=== PATIENT | male | born 1985 | race Caucasian/White ===

== ENCOUNTER 2017-11-11 16:28 | Emergency (ER) | payer SELFPAY ==
--- NOTE | 2017-11-11 16:36 | PDOC ---
History of Present Illness - History of Present Illness Initial Comments: 11/11/17 16:50 The patient is a 32 year old male, with a significant past medical history of asthma, who presents to the emergency department with possible oral thrush. Patient states that 4 days ago he noticed white patches on his tongue. He used peroxide with mild relief. He states yesterday his pain returned and he experienced a burning sensation in his mouth. He states he took amoxicillin this morning. Patient states he recently returned from a trip to [place] in which he was using his inhaler for his asthma more frequently. Patient states he has never had these white oral patches before. He admits to associated ear pain, nasal congestion, and cough. He denies any recent fevers, chills, headache or dizziness. He denies any recent nausea, vomit, diarrhea or constipation. He denies any recent chest pain or shortness of breath. Allergies: NKA Past surgical history: None reported. Social History: Nonsmoker. Denies EtOH use and recreational drug use. <Carmina Barroso - Last Filed: 11/11/17 16:54> <Omar Degroot - Last Filed: 11/11/17 17:11> - General Chief Complaint: Pain Stated Complaint: WHITE PATCHES ORAL, TONGUE Time Seen by Provider: 11/11/17 16:34 Past History <Carmina Barroso - Last Filed: 11/11/17 16:54> - Past Medical History Asthma: Yes Diabetes: No HTN: No - Immunization History Immunization Up to Date: Yes - Suicide/Smoking/Psychosocial Hx Smoking Status: No Smoking History: Unknown if ever smoked Have you smoked in the past 12 months: No Number of Cigarettes Smoked Daily: 0 Hx Alcohol Use: No Drug/Substance Use Hx: No Substance Use Type: None <Omar Degroot - Last Filed: 11/11/17 17:11> - Past Medical History Allergies/Adverse Reactions: Allergies Allergy/AdvReac Type Severity Reaction Status Date / Time No Known Allergies Allergy Verified 11/11/17 16:30 Home Medications: Ambulatory Orders Albuterol Sulfate Inhaler - [Ventolin HFA Inhaler -] 1 - 2 inh PO QID PRN Albuterol 0.083% Nebulizer Dinah [Ventolin 0.083% Nebulizer Soln -] 1 neb NEB Q4H #36 vial 10/14/16 Nystatin Oral Suspension - [Nystatin Oral Susp 738548 Units/5 ML -] 500,000 units PO QID #200 ml 11/11/17 Review of Systems - Review of Systems Constitutional: No: Chills, Fever HEENTM: Yes: Mouth Pain. No: Throat Pain, Throat Swelling Respiratory: No: Cough, Shortness of Breath ABD/GI: No: Nausea, Vomiting Endocrine: No: Increased Thirst, Increased Urine, Unexplained Weight Gain, Unexplained Weight Loss <Omar Degroot - Last Filed: 11/11/17 17:11> *Physical Exam - Vital Signs Last Vital Signs Temp Pulse Resp BP Pulse Ox 98.3 F 98 H 18 143/89 96 11/11/17 16:28 11/11/17 16:28 11/11/17 16:28 11/11/17 16:28 11/11/17 16:28 - Physical Exam Comments: 11/11/17 16:51 GENERAL: The patient is awake, alert, and fully oriented, in no acute distress. HEENT: Normal with no signs of trauma.Pupils equal, round and reactive to light , extraocular movements intact, sclera anicteric, conjunctiva clear. Oral thrush isolated to the tongue. Remainder of oropharynx and buccal mucosa is normal without edema or exudates. EXTREMITIES: Normal range of motion, no edema. NEUROLOGICAL: Normal speech, normal gait. PSYCH: Normal mood, normal affect. SKIN: Warm, Dry, normal turgor, no rashes or lesions noted. <Carmina Barroso - Last Filed: 11/11/17 16:54> Medical Decision Making - Medical Decision Making 11/11/17 16:43 A portion of this note was documented by scribe services under my direction. I have reviewed the details of the note, within reason, and agree with the documentation with the following case summary and management plan written by me. Healthy 32-year-old male with history of mild intermittent asthma presents with white plaque to the tongue for about 3 days. Patient recently returned from a trip to [place], where he was using his asthma pump more frequently than usual (unclear albuterol v. inhaled steroid) and developed a burning sensation to his tongue along noticing a white plaque. No painful swallowing or difficulty swallowing, no fevers or chills. no sxs consistent with diabetes, no risk factors for HIV. Never had thrush before. Vital signs normal Exam as outlined with thrush to the tongue, no oropharyngeal swelling, no stridor, tolerating secretions 32-year-old male healthy with oral thrush, possibly secondary to increased asthma pump usage over the last 10 days. Discussed potential risk factors for underlying diabetes and/or HIV, has no concerning signs or symptoms for either and has a primary physician with which he can follow-up. nystatin swish and spit PMD/ENT follow-up as needed <Omar Degroot - Last Filed: 11/11/17 17:11> *DC/Admit/Observation/Transfer - Attestations Scribe Attestion: 11/11/17 16:53 Documentation prepared by Carmina Barroso, acting as director biomedical engineering for Omar Degroot MD. <Carmina Barroso - Last Filed: 11/11/17 16:54> <Omar Degroot - Last Filed: 11/11/17 17:11> Diagnosis at time of Disposition: Oral thrush - Discharge Dispostion Disposition: HOME Condition at time of disposition: Stable - Prescriptions Prescriptions: Nystatin Oral Suspension - [Nystatin Oral Susp 183436 Units/5 ML -] 500,000 units PO QID #200 ml - Referrals Referrals: Israel Wayne MD [Staff Physician] - - Patient Instructions Printed Discharge Instructions: DI for Thrush Additional Instructions: Activity as tolerated. Stay hydrated. You were symptoms are likely due to oral thrush, possibly precipitated by increased asthma pump use. Tylenol 1000 mg every 8 hours and/or ibuprofen 600 mg every 8 hours as needed for pain. Nystatin as prescribed as an antifungal for the full 10 day course. Swish as long as possible, then spit. Continue your medications as previously prescribed by your physician. You should follow up with your primary doctor and an ENT as soon as possible regarding today's emergency department visit. Consider outpatient glucose testing as discussed and complete your regular scheduled checkup. Return to the emergency department for any new or concerning symptoms, particularly persistent or worsening pain or swelling, difficulty swallowing or breathing, fevers or chills.
[2017-11-11 16:37] VITALS: BP 143/89; PULSE 98; TEMP 98.3; BMI 38.9
== END 2017-11-11 17:25 | disposition home or self-care (01) ==
LOC: FER 16:28
DX: B37.0 Candidal stomatitis (principal); J45.909 Unspecified asthma, uncomplicated
CPT/HCPCS: 99282-25

== ENCOUNTER 2017-12-28 14:04 | Emergency (ER) | payer SELFPAY ==
--- NOTE | 2017-12-28 14:07 | PDOC ---
History of Present Illness <Marzena Alvarez - Last Filed: 12/28/17 14:45> - General History Source: Patient, Old Records Exam Limitations: No Limitations - History of Present Illness Initial Comments: 12/28/17 14:26 The patient is a 32 year old male with a past medical history of asthma ( Symbicort) and recent presentation for possible oral thrush (11/11/17) who presents to the emergency department today for possible oral thrush. The patient states that he used his inhaler 3 days ago and that his mouth has had a tingling sensation since. He reports mild associated irritation and erythema in his mouth. He states that his is not a diabetic. <Christophe Aguilar - Last Filed: 12/28/17 14:49> - General Chief Complaint: Oral Ulcers Stated Complaint: TINGLING TO TONGUE AFTER USE OF ALBUTEROL INHALE Time Seen by Provider: 12/28/17 14:07 Past History - Past Medical History Asthma: Yes COPD: No Diabetes: No HTN: No - Immunization History Immunization Up to Date: Yes - Suicide/Smoking/Psychosocial Hx Smoking Status: No Smoking History: Unknown if ever smoked Have you smoked in the past 12 months: No Number of Cigarettes Smoked Daily: 0 Hx Alcohol Use: No Drug/Substance Use Hx: No Substance Use Type: None <Marzena Alvarez - Last Filed: 12/28/17 14:45> <Christophe Aguilar - Last Filed: 12/28/17 14:49> - Past Medical History Allergies/Adverse Reactions: Allergies Allergy/AdvReac Type Severity Reaction Status Date / Time ibuprofen [From Motrin] AdvReac Intermediate Nausea Verified 12/28/17 14:07 Home Medications: Ambulatory Orders Albuterol Sulfate Inhaler - [Ventolin HFA Inhaler -] 1 - 2 inh PO PRN PRN Metformin HCl 500 mg PO BID #60 tablet 12/28/17 Nystatin Oral Suspension - [Nystatin Oral Susp 911165 Units/5 ML -] 500,000 units PO Q6H #56 cup 12/28/17 Review of Systems - Review of Systems Able to Perform ROS?: Yes Comments:: 12/28/17 14:26 GENERAL/CONSTITUTIONAL: No fever or chills. No weakness. HEAD, EYES, EARS, NOSE AND THROAT: No change in vision. No ear pain or discharge. (+) Mouth tingling, erythema, and irritation. MUSCULOSKELETAL: No joint or muscle swelling or pain. No neck or back pain. ENDOCRINE: No increased thirst. No abnormal weight change. HEMATOLOGIC/LYMPHATIC: No anemia, easy bleeding, or history of blood clots. ALLERGIC/IMMUNOLOGIC: No hives or skin allergy. <Christophe Aguilar - Last Filed: 12/28/17 14:49> *Physical Exam - Physical Exam Comments: GENERAL: Awake, alert, and fully oriented, in no acute distress. Obese ENT: Auricles normal inspection, hearing grossly normal, nares patent, oropharynx clear without exudates. Moist mucosa. +Erythema to the tongue, white patches to lateral portions of the tongue. <Marzena Alvarez - Last Filed: 12/28/17 14:45> - Vital Signs Last Vital Signs Temp Pulse Resp BP Pulse Ox 99 F 96 H 20 122/78 98 12/28/17 14:06 12/28/17 14:06 12/28/17 14:06 12/28/17 14:06 12/28/17 14:06 <Christophe Aguilar - Last Filed: 12/28/17 14:49> Medical Decision Making - Medical Decision Making 12/28/17 14:45 Pt was refusing BGM, however, with counseling, he agreed to it (extreme fear of needles). BGM 317, consistent with new onset diabetes. Typically I would place IV to get glucose below 300 prior to discharge, however, patient will not allow for an IV to be placed without sedation. As 317 is very close to 300, will DC home. Counseled him very carefully that he must start metformin immediately and recommended that he establish care at our clinic in [place]. He was agreeable to this plan. <Marzena Alvarez - Last Filed: 12/28/17 14:45> *DC/Admit/Observation/Transfer - Discharge Dispostion Admit: No <Marzena Alvarez - Last Filed: 12/28/17 14:45> - Attestations Scribe Attestion: 12/28/17 14:26 Documentation prepared by Christophe Aguilar, acting as director of graduate medical education for Marzena Alvarez MD. <Christophe Aguilar - Last Filed: 12/28/17 14:49> Diagnosis at time of Disposition: Oral thrush, New onset type 2 diabetes mellitus - Discharge Dispostion Disposition: HOME Condition at time of disposition: Stable - Prescriptions Prescriptions: Metformin HCl 500 mg PO BID #60 tablet Nystatin Oral Suspension - [Nystatin Oral Susp 402752 Units/5 ML -] 500,000 units PO Q6H #56 cup - Referrals Referrals: Nelson Jacobson MD [Staff Physician] - - Patient Instructions Printed Discharge Instructions: DI for Thrush, DI for Diabetes Type 2 Additional Instructions: TAKE METFORMIN TWICE A DAY PRESCRIBED. IT IS VERY IMPORTANT TO FOLLOW UP WITH THE CLINIC WITHIN 1-2 WEEKS.
[2017-12-28] MEDS ORDERED: HEMOQUE TEST 1 EACH EACH ONE (14:17)
[2017-12-28 14:18] VITALS: BP 122/78; PULSE 96; TEMP 99; BMI 38.7
== END 2017-12-28 14:42 | disposition home or self-care (01) ==
LOC: FER 14:04
DX: B37.0 Candidal stomatitis (principal); E11.9 Type 2 diabetes mellitus without complications
CPT/HCPCS: 82962; 99282-25

== ENCOUNTER 2018-06-22 21:44 | Emergency (ER) | payer SELFPAY ==
[2018-06-22 21:59] VITALS: BP 138/95; PULSE 100; TEMP 98.3; BMI 39.0
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
== END 2018-06-22 22:46 | disposition home or self-care (01) ==
LOC: FER 21:44
DX: S46.912A Strain of unspecified muscle, fascia and tendon at shoulder and upper arm level, left arm, initial encounter (principal); X58.XXXA Exposure to other specified factors, initial encounter; Y93.89 Activity, other specified; Y92.9 Unspecified place or not applicable; J45.909 Unspecified asthma, uncomplicated
CPT/HCPCS: 99281-25

== ENCOUNTER 2018-09-14 21:38 | Emergency (ER) | payer SELFPAY ==
[2018-09-14 21:46] VITALS: BP 148/87; PULSE 95; TEMP 97.8; BMI 40.7
--- NOTE | 2018-09-14 21:48 | PDOC ---
History of Present Illness - General History Source: Patient Exam Limitations: No Limitations - History of Present Illness Initial Comments: 09/14/18 21:52 The patient is a 33 year old male, with a significant PMH of asthma and DM type 2 who presents to the emergency department with chest tightness, nasal congestion, and lightheadedness since 2PM today. Patient describes the chest tightness as a 4/10 in severity and notes that it feels like his asthma. Patient is also complaining of intermittent lightheadedness since yesterday that resolved on its own, but he noticed it again today since 2PM. Patient used his pump at home with no relief. Patient admits to being more anxious than usual as he is having problems with his son. The patient denies shortness of breath, and dizziness. Denies fever, chills, nausea, vomit, diarrhea and constipation. Denies dysuria, frequency, urgency and hematuria. Allergies: ibuprofen Past surgical history: None reported. Social history: No reported alcohol, drug or cigarette use. Adult ROS General: No fevers or chills, no weakness, no weight loss HEENT: No change in vision. No sore throat,. No ear pain (+) nasal congestion. CardioVascular: No chest pain or shortness of breath. (+) chest tightness. Respiratory:No cough, or wheezing. Gastrointestinal: no nausea, vomiting, diarrhea or constipation, No rectal bleeding Genitourinary: No dysuria, hematuria, or frequency Musculoskeletal: No joint or muscle pain or swelling Neurologic: (+) Headache. (+) Lightheaded. No vertigo, dizziness or loss of consciousness Psychiatric: nor depression Skin: No rashes or easy bruising Endocrine: no increased thirst or abnormal weight change Allergic: no skin or latex allergy All other systems reviewed and normal Adult Exam: General: Well-nourished well-developed individual, no acute distress HEENT: Throat: Normal, tonsils normal, no erythema or exudate Neck: Supple, no meningeal signs, no lymphadenopathy Eyes::Pupils equal reactive and round, extraocular motion intact Chest: Nontender to palpation Cardiac: S1-S2 normal, regular rate and rhythm, no murmurs rubs or gallops Respiratory: (+) Expiratory wheezing in all [place]. No use of accessory muscles with respiration. Abdomen: Soft, nondistended, normal bowel sounds, nontender to palpation diffusely Extremities: Warm, dry, no cyanosis, clubbing, or edema Skin: No rashes Neuro: Alert and oriented x3, nonfocal exam, grossly intact, normal gait Psych: Normal mood and affect <Saira Marquez - Last Filed: 09/14/18 21:52> - General History Source: Patient Exam Limitations: No Limitations - History of Present Illness Initial Comments: A portion of this note was documented by scribe services under my direction. I have reviewed the details of the note, within reason, and agree with the documentation with the following case summary and management plan written by me. Patient treated in the ED. Nursing notes are reviewed and incorporated into the medical decision-making. Vital signs reviewed. Assessment and plan: This is a 33-year-old male who comes in complaining of shortness of breath difficulty breathing. Patient ran out of his albuterol nebulizer solution as well as he said he has no more prednisone. In addition to that patient is complaining of some anxiety/chest discomfort secondary to conflicts with his son. Patient refused blood work however did agree to a cardiogram. EKG showed normal sinus rhythm with some possible left atrial enlargement no acute ST-T wave changes otherwise normal EKG. Patient given DuoNeb and started on prednisone 09/14/18 22:28 Reevaluation patient's lungs are now clear post DuoNeb patient feels much better. Prescription sent to the patient's pharmacy for prednisone and nebulizer vials. Patient will follow up with his primary care doctor. <Dante Pablo I - Last Filed: 09/14/18 22:30> - General Chief Complaint: Pain, Acute Stated Complaint: ANXIETY/ASTHMA Time Seen by Provider: 09/14/18 21:40 Past History <Saira Marquez - Last Filed: 09/14/18 21:52> - Past Medical History Asthma: Yes COPD: No Diabetes: No HTN: No - Immunization History Immunization Up to Date: Yes - Suicide/Smoking/Psychosocial Hx Smoking Status: No Smoking History: Never smoked Have you smoked in the past 12 months: No Number of Cigarettes Smoked Daily: 0 Information on smoking cessation initiated: No Hx Alcohol Use: No Drug/Substance Use Hx: No Substance Use Type: None <Dante Pablo I - Last Filed: 09/14/18 22:30> - Past Medical History Allergies/Adverse Reactions: Allergies Allergy/AdvReac Type Severity Reaction Status Date / Time ibuprofen [From Motrin] AdvReac Intermediate Nausea Verified 12/28/17 14:07 Home Medications: Ambulatory Orders Albuterol 0.083% Nebulizer Dinah [Ventolin 0.083% Nebulizer Soln -] 1 neb NEB Q4H #1 box 09/14/18 Albuterol Sulfate Inhaler - [Ventolin Hfa Inhaler -] 2 inh PO Q4H 09/14/18 Prednisone [Deltasone] 40 mg PO DAILY #8 tablet 09/14/18 *Physical Exam - Vital Signs Last Vital Signs Temp Pulse Resp BP Pulse Ox 97.8 F 95 H 20 148/87 97 09/14/18 21:40 09/14/18 21:40 09/14/18 21:40 09/14/18 21:40 09/14/18 21:40 <Saira Marquez - Last Filed: 09/14/18 21:52> - Vital Signs Last Vital Signs Temp Pulse Resp BP Pulse Ox 97.8 F 95 H 20 148/87 97 09/14/18 21:40 09/14/18 21:40 09/14/18 21:40 09/14/18 21:40 09/14/18 21:40 <Dante Pablo I - Last Filed: 09/14/18 22:30> *DC/Admit/Observation/Transfer - Attestations Scribe Attestion: 09/14/18 21:57 Documentation prepared by Saira Marquez, acting as product manager medical device for Dante Pablo MD. <Saira Marquez - Last Filed: 09/14/18 21:52> - Discharge Dispostion Decision to Admit order: No <Dante Pablo I - Last Filed: 09/14/18 22:30> Diagnosis at time of Disposition: Asthma exacerbation, allergic Qualifiers: Asthma severity: mild Asthma persistence: intermittent Qualified Code(s): J45.21 - Mild intermittent asthma with (acute) exacerbation - Discharge Dispostion Disposition: HOME Condition at time of disposition: Stable - Prescriptions Prescriptions: Albuterol 0.083% Nebulizer Dinah [Ventolin 0.083% Nebulizer Soln -] 1 neb NEB Q4H #1 box Prednisone [Deltasone] 40 mg PO DAILY #8 tablet - Patient Instructions Additional Instructions: Take prednisone 40 mg a day for 4 days. Take the albuterol nebulizer as often as every 4-6 hours as needed for shortness of breath. Return to the emergency department immediately with ANY new, persistent or worsening symptoms. Continue any medications as previously prescribed by your physician. You should follow up with your primary doctor as soon as possible regarding today's emergency department visit. . Please make sure your doctor reviews the results of your emergency evaluation. Thank you for coming to the Emergency Department today for your care. It was a pleasure to see you today. Please note that your evaluation is INCOMPLETE until you follow-up with your doctor.
[2018-09-14] MEDS ORDERED: predniSONE 20 MG TABLET (UD) PO STA (21:52)
[2018-09-14] MEDS ORDERED: predniSONE 20 MG TABLET (UD) ONE (21:52)
[2018-09-14] MEDS ORDERED: ALBUTEROL SO4 2.5/IPRATROPIUM 0.5 INH SOL 3 ML VIAL.NEB. NEB ONE ×2 (21:52)
--- NOTE | 2018-09-15 12:36 | EKG ---
Test Reason : Blood Pressure : / mmHG Vent. Rate : 092 BPM Atrial Rate : 092 BPM P-R Int : 172 ms QRS Dur : 102 ms QT Int : 372 ms P-R-T Axes : 064 032 039 degrees QTc Int : 460 ms NORMAL SINUS RHYTHM POSSIBLE LEFT ATRIAL ENLARGEMENT BORDERLINE ECG Confirmed by MD VIKTORIA, NADER ([id number]) on 09/15/2018 12:36:14 PM Referred By: DR RAMEY Confirmed By:NADER BLUM MD
== END 2018-09-14 22:34 | disposition home or self-care (01) ==
LOC: FER 21:38
PROC: 3E0F7GC Introduction of Other Therapeutic Substance into Respiratory Tract, Via Natural or Artificial Opening (ICD-10-PCS; principal; 2018-09-14)
DX: J45.21 Mild intermittent asthma with (acute) exacerbation (principal); F41.9 Anxiety disorder, unspecified
CPT/HCPCS: 93005; 99281-25

== ENCOUNTER 2018-10-26 22:00 | Emergency (ER) | payer SELFPAY ==
[2018-10-26 22:07] VITALS: BP 137/86; PULSE 92; BMI 39.7
--- NOTE | 2018-10-26 23:38 | PDOC ---
History of Present Illness - General Chief Complaint: Lightheaded Stated Complaint: FULLNESS SENATION IN SINUS Time Seen by Provider: 10/26/18 22:05 - History of Present Illness Initial Comments: 10/26/18 23:37 33yo M hx asthma, DM2 presents to the ED with 6 months of sinus fullness. Pt reports feeling congestion in his forehead sinus despite trying mucinex, zyrtec , claritin, steroids. No associated headache, fevers, chills. Pt presents today requesting antibiotics to see if it will help. Pt has not seen a primary care doctor and states he gets most of his care in emergency departments. In addition , pt reports that he had an episode of diffuse chest pain 6 days ago during a stressful occurrence with his son. He states the chest pain was dull, lasted for a few seconds and self resolved. He had no associated symptoms at the time. He states he experienced something similar a few months ago and was evaluated here for it. He refused labwork at the time but had a normal cardiogram done. He has not seen a primary doctor or tower technician for follow up. He has no family hx cardiac disease. He denies smoking or drug use. He denies any recent CP, SOB, weakness/dizziness, numbness, diaphoresis, leg edema, abd pain, N/V/D. Denies recent travel or immobility. He admits to feeling very anxious from time to time over the last 6 months since he lost his mother and has had issues with his son. Denies SI/HI/AH/VH. Past History - Past Medical History Allergies/Adverse Reactions: Allergies Allergy/AdvReac Type Severity Reaction Status Date / Time ibuprofen [From Motrin] AdvReac Intermediate Nausea Verified 12/28/17 14:07 Home Medications: Ambulatory Orders Albuterol Sulfate Inhaler - [Ventolin Hfa Inhaler -] 2 inh PO Q4H 09/14/18 Asthma: Yes COPD: No Diabetes: No HTN: No - Immunization History Immunization Up to Date: Yes - Suicide/Smoking/Psychosocial Hx Smoking Status: No Smoking History: Never smoked Have you smoked in the past 12 months: No Number of Cigarettes Smoked Daily: 0 Information on smoking cessation initiated: Yes Hx Alcohol Use: No Drug/Substance Use Hx: No Substance Use Type: None Review of Systems - Review of Systems Comments:: 10/26/18 23:50 GENERAL/CONSTITUTIONAL: No fever or chills. No weakness. HEAD, EYES, EARS, NOSE AND THROAT: No change in vision. No ear pain or discharge. No sore throat. GASTROINTESTINAL: No nausea, vomiting, diarrhea or constipation. GENITOURINARY: No dysuria, frequency, or change in urination. CARDIOVASCULAR: No chest pain or shortness of breath. RESPIRATORY: No cough, wheezing, or hemoptysis. MUSCULOSKELETAL: No joint or muscle swelling or pain. No neck or back pain. SKIN: No rash NEUROLOGIC: No headache, vertigo, loss of consciousness, or change in strength/ sensation. ENDOCRINE: No increased thirst. No abnormal weight change. HEMATOLOGIC/LYMPHATIC: No anemia, easy bleeding, or history of blood clots. ALLERGIC/IMMUNOLOGIC: No hives or skin allergy. *Physical Exam - Vital Signs Last Vital Signs Temp Pulse Resp BP Pulse Ox 92 H 20 137/86 100 10/26/18 22:04 10/26/18 22:04 10/26/18 22:04 10/26/18 22:04 - Physical Exam Comments: 10/26/18 23:56 GENERAL: Awake, alert, and fully oriented, in no acute distress HEAD: No signs of trauma, no ttp over any sinuses EYES: PERRLA, EOMI, sclera anicteric, conjunctiva clear ENT: Auricles normal inspection, hearing grossly normal, nares patent, oropharynx clear without exudates. Moist mucosa NECK: Normal ROM, supple, no lymphadenopathy, JVD, or masses LUNGS: Breath sounds equal, clear to auscultation bilaterally. No wheezes, and no crackles HEART: Regular rate and rhythm, normal S1 and S2, no murmurs, rubs or gallops ABDOMEN: Soft, nontender, normoactive bowel sounds. No guarding, no rebound. No masses EXTREMITIES: Normal range of motion, no edema. No clubbing or cyanosis. No cords , erythema, or tenderness BACK: No midline spinal tenderness in cervical/thoracic/lumbar region NEUROLOGICAL: Normal speech, cranial nerves intact, negative pronator drift, 5/ 5 strength in all 4 extremities, normal sensation to light touch in all 4 extremities, normal cerebellar exam, normal gait, normal reflexes and tone SKIN: Warm, Dry, normal turgor, no rashes or lesions noted. Moderate Sedation - Procedure Monitoring Vital Signs: Procedure Monitoring Vital Signs Temperature Pulse Rate 92 H 10/26/18 22:04 Respiratory Rate 20 10/26/18 22:04 Blood Pressure 137/86 10/26/18 22:04 O2 Sat by Pulse Oximetry (%) 100 10/26/18 22:04 Heart Score/ECG Review #1 10/26/18 23:56 Twelve-lead EKG was performed and reviewed by me. Normal sinus rhythm, rate 82. Normal axis and intervals. No ST elevations or T-wave inversions. Medical Decision Making - Medical Decision Making 10/27/18 00:03 33yo M hx asthma, DM2 presents to the ED with sinus pressure requesting abx and an episode of CP 4 days ago during a stressful period. With regards to sinus pressure, unlikely bacterial infection in absence of fevers, or any associated sxs. As such, will not presctibe abx. Discussed treatment options with patients who will try sudafed. Does not want to try any now, as he knows it will keep him awake. With regards to CP, pt declines labs, CXR or cardiac workup but is amenable to an EKG. Pt aware of risks of refusing labs/XR including and disability. EKG is non ischemic. He has not had any chest pain over the last 4 days. He is clinically well appearing and requests DC home. Return precautions given. I discussed the physical exam findings, ancillary test results and final diagnoses with the patient. I answered all of the patient's questions. The patient was satisfied with the care received and felt comfortable with the discharge plan and treatment plan. The patient will call their primary care physician within 24 hours to arrange follow-up and will return to the Emergency Department with any new, persistent or worsening symptoms. *DC/Admit/Observation/Transfer Diagnosis at time of Disposition: Sinus pressure, Chest pain, Head congestion - Discharge Dispostion Disposition: HOME Condition at time of disposition: Stable Decision to Admit order: No - Referrals Referrals: [facility] [place] [facility] [place] [Provider Group] - Patient Instructions Printed Discharge Instructions: DI for Sinusitis Additional Instructions: A referral has been provided for you to establish care with a primary care physician Please call this number tomorrow to make an appointment within 2-3 days Return to the emergency department immediately if you have any new, worsening, or concerning symptoms such as chest pain or shortness of breath - Post Discharge Activity - Attestations Physician Attestion: 10/27/18 00:11 I, Dr. August Villatoro MD, attest that this document has been prepared under my direction and personally reviewed by me in its entirety. I further attest, that it accurately reflects all work, treatment, procedures and medical decision -making performed by me.
--- NOTE | 2018-10-27 10:05 | EKG ---
Test Reason : Blood Pressure : / mmHG Vent. Rate : 082 BPM Atrial Rate : 082 BPM P-R Int : 166 ms QRS Dur : 110 ms QT Int : 384 ms P-R-T Axes : 055 023 040 degrees QTc Int : 448 ms NORMAL SINUS RHYTHM NORMAL ECG WHEN COMPARED WITH ECG OF 14-SEP-2018 22:00, NO SIGNIFICANT CHANGE WAS FOUND Confirmed by Jere Bolanos MD ([id number]) on 10/27/2018 10:05:13 AM Referred By: MD SOLIMAN Confirmed By:Jere Bolanos MD
== END 2018-10-27 00:18 | disposition home or self-care (01) ==
LOC: FER 22:00
CPT/HCPCS: 93005; 99281-25